=== PATIENT | male | born 1935 | race Caucasian/White ===

== ENCOUNTER 2018-06-08 13:02 | Inpatient (IN) ==
[2018-06-08 15:05] LABS: Basophils # 0.1 K/mm3 (0-0.2); Basophils % 0.6 % (0.1-2.0); Eosinophils # 0.3 K/mm3 (0.0-0.4); Eosinophils % 3.7 % (0.1-12.0); Hematocrit 46.3 % (42.0-52.0); Hemoglobin 14.8 g/dL (14.1-18.0); Lymphocytes # 2.4 K/mm3 (0.7-4.5); Lymphocytes % 26.8 K/mm3 (10-50); Mean Corpuscular Hemoglobin 29.5 pg (27.0-31.2); Mean Corpuscular Volume 92.1 fl (80-94); Mean Platelet Volume 8.3 fl (7.4-10.4); Monocytes # 0.8 K/mm3 (0.1-1.0); Monocytes % 8.5 % (1.7-9.3); Neutrophils # 5.5 K/mm3 (1.8-7.8); Neutrophils % 60.4 % (37.0-80.0); Platelet Count 179 K/mm3 (142-424); Red Blood Count 5.02 M/mm3 (4.60-6.20); Red Cell Distribution Width 12.8 % (11.5-17.5); White Blood Count 9.1 K/mm3 (4.8-10.8)
[2018-06-08 15:17] LABS: Albumin Level 3.8 gm/dL (3.4-5.0); Albumin/Globulin Ratio 1.1 (1.1-1.8); Anion Gap 10.3 mEq/L (5-15); Bilirubin,Total 0.8 mg/dL (0.2-1.0); Calcium 9.3 mg/dL (8.5-10.1); Globulin 3.5 gm/dl (1.3-3.2); Potassium 4.3 mmoL/L (3.5-5.1); Total Protein,Serum 7.3 gm/dL (6.4-8.2)
[2018-06-08 15:24] LABS: Creatine Kinase 150 U/L (39-308)
--- NOTE | 2018-06-08 15:29 | Pharmacy Consult Notes ---
[facility] VTE Monitoring - Patient Demographics Admission date: 06/08/18 Report Date: 06/08/18 Time: 15:29 Allergies/Adverse Reactions: Patient Allergies ciprofloxacin [From Cipro] Allergy (Verified 06/08/18 15:26) UNKNOWN Height: 1.83 m Weight: 102.058 kg - VTE Risk Labs: VTE Related Lab Results Hgb 14.8 g/dL (14.1-18.0) 06/08/18 14:00 Hct 46.3 % (42.0-52.0) 06/08/18 14:00 Plt Count 179 K/mm3 (142-424) 06/08/18 14:00 BUN 17 mg/dL (7-18) 06/08/18 14:00 Creatinine 0.90 mg/dL (0.70-1.30) 06/08/18 14:00 Estimated Creat Clear 81 mL/min (0-300) 06/08/18 14:00 Was VTE Risk Assessment Performed: Yes VTE Risk Level: Very Low Risk Clinical Trial Participant: No - Prophylaxis VTE Prophylaxis Ordered?: Yes Types of VTE Prophylaxis: TEDS Knee High
--- NOTE | 2018-06-08 15:45 | Consult Report ---
History of Present Illness Consult date: 06/08/18 Requesting physician: Shelby Roberts Chief complaint: Dizziness, palpitations Additional Medical History:: 1. Hypertension since the mid 1970s 2. Family history of coronary artery disease/myocardial infarction in his father who at age 44 3. "Borderline diabetic" but not on medication 4. Prostatic hypertrophy 5. History of palpitations with previous Holter monitor showing heart rates down into the 30's during sleep, PAC's and PVC's. 6. History of abnormal stress test 2004 with no ischemia and preserved ejection fraction History of present illness: 83-year-old white male with history of hypertension and previously documented PACs and PVCs presented to Dr. Roberts's office for 2 day history of palpitations and orthostatic dizziness. Patient denies any chest pain, pressure or tightness. He denies any nausea, vomiting, diaphoresis, shortness of breath, fever or chills. Denies any history of thyroid problems. Is a remote history of an abnormal stress test without need for further intervention or evaluation. He does see Dr. Tim Christianson on regular basis with last visit less than 1 month ago. Patient has been told he may need a pacemaker in future but did not meet criteria at that time. Patient states he has had intermittent episodes of palpitations over this over the last few years which he has treated at home by lying on a wedge for a couple of hours with resolution of symptoms thereafter. Patient was admitted to the hospital for evaluation. Cardiology consulted. Patient's telemetry shows bigeminy at this time with EKG showing sinus rhythm and occasional PVCs. [facility] History Medical History: Reports:: Congenital Heart Disease (heart problems), Hyperlipidemia, Hypertension Denies:: Cancer, Diabetes Mellitus Type 1, Diabetes Mellitus Type 2, MRSA Laterality Cases: Right: Other Other Surgeries: Yes: Colonoscopy Amputation: No Fractures: No - *Social History Educational Level: Completed College Smoking Status: Former smoker Tobacco Type: cigarettes Alcohol Intake: never Substance Use Type: denies use Occupational Status: retired Housing: house Household Members: spouse - Psychiatric History Expresses thoughts of harming self/others: None Suicide Plan Description: No Plan *Family Hx:: Cancer, Hyperlipidemia, Heart Attack, Hypertension, Stroke Meds Home Medications Medication Instructions Recorded Confirmed Type cholecalciferol (vitamin D3) 1,000 1,000 unit PO DAILY cap 02/24/18 History unit capsule cranberry extract 500 mg capsule 500 mg PO DAILY cap 02/24/18 History flaxseed oil 1,000 mg capsule 1,000 mg PO BID 02/24/18 History fluticasone 50 mcg/actuation nasal 1 spray INTRANASAL DAILY g 02/24/18 History spray,suspension omega-3 fatty acids 1,000 mg 1,000 mg PO DAILY cap 02/24/18 History capsule pravastatin 40 mg tablet 40 mg PO QHS 02/24/18 History Aspirin [Aspirin 81mg EC Tab] 81 mg PO DAILY 06/08/18 06/08/18 History Calcium Polycarbophil [Fiber-Caps] 625 mg PO BID 06/08/18 06/08/18 History Finasteride [Proscar 5mg Tablet] 5 mg PO DAILY 06/08/18 06/08/18 History Flaxseed/Omega3,6,9/Fatty Acid 1 each PO BID 06/08/18 06/08/18 History [Flax Seed Oil 1,300 mg Softgel] Glucosa Evangelista 2Kcl/Chondroitin Evangelista 1 each PO BID 06/08/18 06/08/18 History [Glucosamine & Chondroitin Cap] Telmisartan/Hydrochlorothiazid 1 tab PO DAILY 06/08/18 06/08/18 History [Telmisartan-Hctz 80-12.5 mg Tb] Terazosin HCl [Hytrin 1mg Capsule] 1 mg PO HS 06/08/18 06/08/18 History Vit C/E/Zn/Coppr/Lutein/Zeaxan 1 each PO BID 06/08/18 06/08/18 History [Preservision Areds 2 Softgel] Allergies Allergy/AdvReac Type Severity Reaction Status Date / Time ciprofloxacin [From Cipro] Allergy UNKNOWN Verified 06/08/18 15:26 Review of Systems - *Cardiovascular Reports irregular heart rhythm, Reports lightheadedness - *Respiratory Denies shortness of breath - *Gastrointestinal Denies abdominal pain - *Neurologic Reports dizziness Exam Vital signs and Labs for Last 24 Hours: Temp Pulse Resp BP Pulse Ox 97.7 F 68 18 142/63 96 06/08/18 13:52 06/08/18 15:15 06/08/18 13:52 06/08/18 15:16 06/08/18 13:52 Laboratory Results - last 24 hr 06/08/18 14:00: Total Creatine Kinase 150, CK-MB (CK-2) 2.5, CK-MB (CK-2) Rel Index 1.7, Troponin I < 0.02 06/08/18 14:00: WBC 9.1, RBC 5.02, Hgb 14.8, Hct 46.3, MCV 92.1, MCH 29.5, MCHC 32.0, RDW 12.8, Plt Count 179, MPV 8.3, Neut % (Auto) 60.4, Lymph % (Auto) 26.8 , [place] % (Auto) 8.5, Eos % (Auto) 3.7, Baso % (Auto) 0.6, Neut # (Auto) 5.5, Lymph # (Auto) 2.4, [place] # (Auto) 0.8, Eos # (Auto) 0.3, Baso # (Auto) 0.1 06/08/18 14:00: Sodium 141, Potassium 4.3, Chloride 105, Carbon Dioxide 30, Anion Gap 10.3, BUN 17, Creatinine 0.90, Estimated Creat Clear 81, Estimated GFR 81, Est GFR ( Amer) 98, Glucose 111 H, Calcium 9.3, Total Bilirubin 0.8, AST 30, ALT 48, Alkaline Phosphatase 70, Total Protein 7.3, Albumin 3.8, Globulin 3.5 H, Albumin/Globulin Ratio 1.1 I & O for Last 24 hours: Intake & Output 06/06/18 06/07/18 06/08/18 06/09/18 11:59 11:59 11:59 11:59 Weight 225 lb - *Routine Neck Exam Absent: JVD, carotid bruit - *Routine Respiratory Exam Present: CTA bilaterally - *Routine Cardiovascular Exam Present: RRR. Absent: murmur, gallop - *Routine Abdominal Exam Present: soft. Absent: tenderness - *Routine Extremities Exam Absent: edema - *Routine Neurological Exam Present: alert, oriented X3, moving all extremities Assessment and Plan (1) Ventricular bigeminy Current visit: Yes Status: Acute Category: Medical Code(s): I49.9 - Cardiac arrhythmia, unspecified (2) Palpitations Current visit: Yes Status: Acute Category: Medical Code(s): R00.2 - Palpitations (3) Orthostatic dizziness Current visit: Yes Status: Acute Category: Medical Code(s): R42 - Dizziness and giddiness (4) Hypertension Current visit: Yes Status: Acute Category: Medical Code(s): I10 - Essential (primary) hypertension - Assessment and plan all Dx Assessment and Plan for all problems:: 1. Obtain an echo to assess LVEF 2. Labs reviewed with initial troponin normal. Will check free T4 and TSH. 3. Continue to monitor patient overnight. 4. Further recommendations to follow.
[2018-06-08 16:32] LABS: T4 (Thyroxine) 5.6 ug/dl (4.7-13.3); Thyroid Stimulating Hormone 3.18 uIU/ml (0.358-3.740)
--- NOTE | 2018-06-08 18:23 | Progress Note ---
Internal Medicine - PN: Subj *Date: 06/08/18 *Time: 18:20 Interval history: See H&P from [facility]. The patient is admitted with cardiac dysrhythmia. Bigeminy was evident in the office. This was confirmed by EKG on admission. On telemetry he shows a lot of irregularity with significant pauses. This is no doubt the etiology of his unsteadiness. There may be necessity for a pacemaker. Exam Vital signs and Labs for Last 24 Hours: Temp Pulse Resp BP Pulse Ox 97.7 F 90 18 142/63 96 06/08/18 13:52 06/08/18 16:00 06/08/18 13:52 06/08/18 15:16 06/08/18 13:52 Laboratory Results - last 24 hr 06/08/18 14:00: Total Creatine Kinase 150, CK-MB (CK-2) 2.5, CK-MB (CK-2) Rel Index 1.7, Troponin I < 0.02 06/08/18 14:00: WBC 9.1, RBC 5.02, Hgb 14.8, Hct 46.3, MCV 92.1, MCH 29.5, MCHC 32.0, RDW 12.8, Plt Count 179, MPV 8.3, Neut % (Auto) 60.4, Lymph % (Auto) 26.8 , [place] % (Auto) 8.5, Eos % (Auto) 3.7, Baso % (Auto) 0.6, Neut # (Auto) 5.5, Lymph # (Auto) 2.4, [place] # (Auto) 0.8, Eos # (Auto) 0.3, Baso # (Auto) 0.1 06/08/18 14:00: Sodium 141, Potassium 4.3, Chloride 105, Carbon Dioxide 30, Anion Gap 10.3, BUN 17, Creatinine 0.90, Estimated Creat Clear 81, Estimated GFR 81, Est GFR ( Amer) 98, Glucose 111 H, Calcium 9.3, Total Bilirubin 0.8, AST 30, ALT 48, Alkaline Phosphatase 70, Total Protein 7.3, Albumin 3.8, Globulin 3.5 H, Albumin/Globulin Ratio 1.1 06/08/18 14:00: TSH 3.18, Free T4 Index 2.0 L, Thyroxine (T4) 5.6, T3 Uptake 35 I & O for Last 24 hours: Intake & Output 06/06/18 06/07/18 06/08/18 06/09/18 11:59 11:59 11:59 11:59 Intake Total 110 / 110 Balance 110 / 110 Weight 225 lb Assessment and Plan (1) Ventricular bigeminy Current visit: Yes Status: Acute Category: Medical Code(s): I49.9 - Cardiac arrhythmia, unspecified (2) Palpitations Current visit: Yes Status: Acute Category: Medical Code(s): R00.2 - Palpitations (3) Orthostatic dizziness Current visit: Yes Status: Acute Category: Medical Code(s): R42 - Dizziness and giddiness (4) Hypertension Current visit: Yes Status: Acute Category: Medical Code(s): I10 - Essential (primary) hypertension
--- NOTE | 2018-06-09 08:15 | Progress Note ---
Internal Medicine - PN: Subj *Date: 06/09/18 *Time: 08:38 Interval history: Patient did sleep some last night. He denies chest pain and shortness of breath. He has been up to the bathroom many times with out difficulty. Nursing states monitor has showed mostly ventricular bigeminy. Exam Vital signs and Labs for Last 24 Hours: Temp Pulse Resp BP Pulse Ox 99.5 F 80 18 131/55 94 L 06/09/18 08:00 06/09/18 08:00 06/09/18 08:00 06/09/18 08:00 06/09/18 08:00 Laboratory Results - last 24 hr 06/08/18 14:00: Total Creatine Kinase 150, CK-MB (CK-2) 2.5, CK-MB (CK-2) Rel Index 1.7, Troponin I < 0.02 06/08/18 14:00: WBC 9.1, RBC 5.02, Hgb 14.8, Hct 46.3, MCV 92.1, MCH 29.5, MCHC 32.0, RDW 12.8, Plt Count 179, MPV 8.3, Neut % (Auto) 60.4, Lymph % (Auto) 26.8 , [place] % (Auto) 8.5, Eos % (Auto) 3.7, Baso % (Auto) 0.6, Neut # (Auto) 5.5, Lymph # (Auto) 2.4, [place] # (Auto) 0.8, Eos # (Auto) 0.3, Baso # (Auto) 0.1 06/08/18 14:00: Sodium 141, Potassium 4.3, Chloride 105, Carbon Dioxide 30, Anion Gap 10.3, BUN 17, Creatinine 0.90, Estimated Creat Clear 81, Estimated GFR 81, Est GFR ( Amer) 98, Glucose 111 H, Calcium 9.3, Total Bilirubin 0.8, AST 30, ALT 48, Alkaline Phosphatase 70, Total Protein 7.3, Albumin 3.8, Globulin 3.5 H, Albumin/Globulin Ratio 1.1 06/08/18 14:00: TSH 3.18, Free T4 Index 2.0 L, Thyroxine (T4) 5.6, T3 Uptake 35 Laboratory Tests 06/08/18 14:00 Total Creatine Kinase 150 CK-MB (CK-2) 2.5 CK-MB (CK-2) Rel Index 1.7 Troponin I < 0.02 I & O for Last 24 hours: Intake & Output 06/06/18 06/07/18 06/08/18 06/09/18 11:59 11:59 11:59 11:59 Intake Total 470 / 470 Balance 470 / 470 Weight 225 lb 2.988 oz - Constitutional no acute distress Comments: Sitting up in the bed eating breakfast - *Routine Respiratory Exam Present: CTA bilaterally (Anteriorly and posteriorly) - *Routine Cardiovascular Exam Comments: Ventricular bigeminy noted on monitor - *Routine Abdominal Exam Present: soft, normoactive bowel sounds. Absent: tenderness, distended - *Routine Extremities Exam Present: full ROM. Absent: edema, calf tenderness - *Routine Neurological Exam Present: alert, oriented X3 Assessment and Plan (1) Ventricular bigeminy Current visit: Yes Status: Acute Category: Medical Code(s): I49.9 - Cardiac arrhythmia, unspecified (2) Palpitations Current visit: Yes Status: Acute Category: Medical Code(s): R00.2 - Palpitations (3) Orthostatic dizziness Current visit: Yes Status: Acute Category: Medical Code(s): R42 - Dizziness and giddiness (4) Hypertension Current visit: Yes Status: Acute Category: Medical Code(s): I10 - Essential (primary) hypertension - Assessment and plan all Dx Assessment and Plan for all problems:: Cardiology has seen patient and will follow their plan. Echo results are pending.
--- NOTE | 2018-06-09 11:14 | Progress Note ---
Subjective Date: 06/09/18 Time: 11:10 Principal diagnosis: Ventricular Bigeminy, Couplets and dizziness Interval history: 83 yo WM in bed in NAD. Still with brief dizziness when standing. Still with ventricular bigeminy and occasional couplets on telemetry. First degree AV block noted also. No syncope. Exam Vital signs and Labs for Last 24 Hours: Temp Pulse Resp BP Pulse Ox 99.5 F 80 18 131/55 94 L 06/09/18 08:00 06/09/18 08:00 06/09/18 08:00 06/09/18 08:00 06/09/18 08:00 Laboratory Results - last 24 hr 06/08/18 14:00: Total Creatine Kinase 150, CK-MB (CK-2) 2.5, CK-MB (CK-2) Rel Index 1.7, Troponin I < 0.02 06/08/18 14:00: WBC 9.1, RBC 5.02, Hgb 14.8, Hct 46.3, MCV 92.1, MCH 29.5, MCHC 32.0, RDW 12.8, Plt Count 179, MPV 8.3, Neut % (Auto) 60.4, Lymph % (Auto) 26.8 , [place] % (Auto) 8.5, Eos % (Auto) 3.7, Baso % (Auto) 0.6, Neut # (Auto) 5.5, Lymph # (Auto) 2.4, [place] # (Auto) 0.8, Eos # (Auto) 0.3, Baso # (Auto) 0.1 06/08/18 14:00: Sodium 141, Potassium 4.3, Chloride 105, Carbon Dioxide 30, Anion Gap 10.3, BUN 17, Creatinine 0.90, Estimated Creat Clear 81, Estimated GFR 81, Est GFR ( Amer) 98, Glucose 111 H, Calcium 9.3, Total Bilirubin 0.8, AST 30, ALT 48, Alkaline Phosphatase 70, Total Protein 7.3, Albumin 3.8, Globulin 3.5 H, Albumin/Globulin Ratio 1.1 06/08/18 14:00: TSH 3.18, Free T4 Index 2.0 L, Thyroxine (T4) 5.6, T3 Uptake 35 I & O for Last 24 hours: Intake & Output 06/06/18 06/07/18 06/08/1806/09/18 11:59 11:59 11:59 11:59 Intake Total 470 / 470 Balance 470 / 470 Weight 225 lb 2.988 oz - *Routine Respiratory Exam Present: CTA bilaterally - *Routine Cardiovascular Exam Present: RRR. Absent: murmur, gallop, rubs - *Routine Neurological Exam Present: alert, oriented X3, moving all extremities Progress Note: A&P (1) Ventricular bigeminy Status: Acute Current Visit: Yes (2) Palpitations Status: Acute Current Visit: Yes (3) Orthostatic dizziness Status: Acute Current Visit: Yes (4) Hypertension Status: Acute Current Visit: Yes Assessment and Plan for All Diagnoses:: Will give a trial of bisoprolol to reduce bigeminy/couplets and see if dizziness resolves. If patient improves but develops symptomatic bradycardia, then pacemaker indicated. Echo pending.
--- NOTE | 2018-06-09 18:38 | Cardiology Report ---
PROCEDURE: 2-D M-mode and color Doppler study INDICATIONS FOR THE TEST: Chest pain COPD Heart Murmur Tobacco Smoking Palpitations + Fatigue Syncope Edema Hypertension+Diabetes Mellitus Rheumatic Fever SOB HUGO Obesity Hyperlipidemia Family History HD Additional History VENTRICULAR BIGEMINY PATIENT INFORMATION HEIGHT: 72 WEIGHT:225 GENDER: Male B/P:142/63 2-D/M-MODE INTERPRETATION: 2-D MEASUREMENTS OBSERVED VALUES IN CMS Right Ventricular Dimension (RVDd) 2.6 Interventricular Septum (Thickness)(IVsd) 1.7 Left Ventricular Internal Dimensions(LVIDd) 4.5 Left Ventricular Posterior Wall (Thickness)(LVPWd) 1.0 Aortic Root 4.0 Aortic Cusp Separation 2.2 Left Atrial Dimensions (LAD) 3.7 2D 1. Left atrium is mildly enlarged, left ventricle is normal size, mild concentric left ventricular hypertrophy, visually estimated ejection fraction 55% with no obvious regional wall motion abnormality. 2. The right atrium and right ventricle are normal size and contractility. 3. The aortic valve is minimally thickened and fibrosed. 4. The mitral and tricuspid valve are structurally normal. 5. The pulmonic valve is poorly. 6. No significant pericardial effusion noted. DOPPLER INTERROGATION: Doppler interrogation of the aortic, mitral and tricuspid valvular presence of mild mitral and tricuspid regurgitation, tricuspid and jet velocity is insufficient for calculation of the right ventricular systolic pressure, grade 1 diastolic dysfunction seen with tissue Doppler evidence of raised left atrial pressure. CONCLUSION: 1. Mildly enlarged left atrium, normal left ventricular size, mild concentric left ventricular hypertrophy, visually estimated ejection fraction 55% with no obvious regional wall motion abnormality, grade 1 diastolic dysfunction seen with tissue Doppler evidence of raised left atrial pressure. 2. Trace aortic, mild mitral and tricuspid regurgitation 3. No significant pericardial effusion noted. Conclusion:
--- NOTE | 2018-06-10 08:16 | Progress Note ---
Internal Medicine - PN: Subj *Date: 06/10/18 *Time: 08:14 Interval history: Patient states he is feeling about the same today. He states his heart rate dropped into the 20s last night and is staying anywhere from 50-60 this morning. He has some medications he would like to discuss with cardiology about restarting. He denies any pain. He states he slept well and ate breakfast. Exam Vital signs and Labs for Last 24 Hours: Temp Pulse Resp BP Pulse Ox 97.8 F 61 18 130/94 95 06/10/18 08:00 06/10/18 08:00 06/10/18 08:00 06/10/18 08:00 06/10/18 08:00 I & O for Last 24 hours: Intake & Output 06/07/18 06/08/18 06/09/18 06/10/18 11:59 11:59 11:59 11:59 Intake Total 470 / 470 360 / 360 Balance 470 / 470 360 / 360 Weight 225 lb 2.988 oz - Constitutional no acute distress - *Routine Respiratory Exam Present: CTA bilaterally - *Routine Cardiovascular Exam Present: RRR - *Routine Abdominal Exam Present: soft, normoactive bowel sounds. Absent: tenderness - *Routine Extremities Exam Absent: edema Assessment and Plan (1) Ventricular bigeminy Current visit: Yes Status: Acute Category: Medical Code(s): I49.9 - Cardiac arrhythmia, unspecified (2) Palpitations Current visit: Yes Status: Acute Category: Medical Code(s): R00.2 - Palpitations (3) Orthostatic dizziness Current visit: Yes Status: Acute Category: Medical Code(s): R42 - Dizziness and giddiness (4) Hypertension Current visit: Yes Status: Acute Category: Medical Code(s): I10 - Essential (primary) hypertension - Assessment and plan all Dx Assessment and Plan for all problems:: Further care as per cardiology.
--- NOTE | 2018-06-10 09:22 | Progress Note ---
Subjective Date: 06/10/18 Time: 09:20 Principal diagnosis: Ventricular Bigeminy, Couplets and dizziness Interval history: 83 yo WM in bed in NAD. States the dizziness has improved with the addition of bisoprolol. Rate dropped to 29 bpm per patient while resting last night with quick jump back to 50-60's. Asymptomatic. Exam Vital signs and Labs for Last 24 Hours: Temp Pulse Resp BP Pulse Ox 97.8 F 58 L 18 130/94 95 06/10/18 08:00 06/10/18 08:00 06/10/18 08:00 06/10/18 08:00 06/10/18 08:00 I & O for Last 24 hours: Intake & Output 06/07/18 06/08/18 06/09/18 06/10/18 11:59 11:59 11:59 11:59 Intake Total 470 / 470 360 / 360 Balance 470 / 470 360 / 360 Weight 225 lb 2.988 oz - *Routine Respiratory Exam Present: CTA bilaterally - *Routine Cardiovascular Exam Present: RRR, irregular rhythm Progress Note: A&P (1) Ventricular bigeminy Status: Acute Current Visit: Yes (2) Palpitations Status: Acute Current Visit: Yes (3) Orthostatic dizziness Status: Acute Current Visit: Yes (4) Hypertension Status: Acute Current Visit: Yes Assessment and Plan for All Diagnoses:: Pt seen with Dr. Sargent Discussed use of bisoprolol to suppress symptomatic ectopic beats. Pt relates improvement in symptoms since admission. Discussed indications for pacemaker in future (return of symptoms despite beta rudy therapy or if he develops symptomatic bradycardia or syncope). OK for discharge home from Cardiology standpoint Follow up in 2-4 wks in our office.
[2018-06-10 13:39] VITALS: BP 117/40
--- NOTE | 2018-06-14 22:40 | Discharge Summary ---
General - General Admission date:: 06/08/18 Discharge date: 06/10/18 HPI HPI: 83-year-old white male with history of hypertension and previously documented PACs and PVCs presented to Dr. Roberts's office for 2 day history of palpitations and orthostatic dizziness. Patient denies any chest pain, pressure or tightness. He denies any nausea, vomiting, diaphoresis, shortness of breath, fever or chills. Denies any history of thyroid problems. Has a remote history of an abnormal stress test without need for further intervention or evaluation. He does see Dr. Tim Christianson on a regular basis with last visit less than 1 month ago. Patient has been told he may need a pacemaker in future but did not meet criteria at that time. Patient states he has had intermittent episodes of palpitations over this over the last few years which he has treated at home by lying on a wedge for a couple of hours with resolution of symptoms thereafter. Patient was admitted to the hospital for evaluation. Cardiology was consulted. Patient's telemetry shows bigeminy at this time with EKG showing sinus rhythm and occasional PVCs. Hospital Course Hospital Course: Cardiology saw the patient and ordered an echo. His troponin was normal. They also ordered thyroid studies and his free T4 was slightly low at 2. His echo showed an EF of 55%. They recommended a trial of bisoprolol to reduce bigeminy/ couplets and see if the dizziness would resolve. They felt if he improved but developed symptomatic bradycardia, then a pacemaker would be indicated. His dizziness did improve with the addition of bisoprolol. His rate dropped to 29 bpm while resting during the night with a quick jump back to 50-60's. Cardiology discussed indications for pacemaker in future (return of symptoms despite beta rudy therapy or if he develops symptomatic bradycardia or syncope). They felt he could be discharged home on bisoprolol and will need to f/u in the office with them in 2-4 wks. Objective Vital signs: Temp Pulse Resp BP Pulse Ox 97.8 F 48 L 17 117/40 94 L 06/10/18 12:00 06/10/18 12:00 06/10/18 12:00 06/10/18 12:00 06/10/18 12:00 Narrative: - Constitutional no acute distress Comments: Sitting up in the bed eating breakfast - *Routine Respiratory Exam Present: CTA bilaterally (Anteriorly and posteriorly) - *Routine Cardiovascular Exam Comments: Ventricular bigeminy noted on monitor - *Routine Abdominal Exam Present: soft, normoactive bowel sounds. Absent: tenderness, distended - *Routine Extremities Exam Present: full ROM. Absent: edema, calf tenderness - *Routine Neurological Exam Present: alert, oriented X3 DS: Diagnosis - Discharge Diagnosis (1) Ventricular bigeminy Status: Acute (2) Palpitations Status: Acute (3) Orthostatic dizziness Status: Acute (4) Hypertension Status: Acute Discharge Plan - Patient Discharge Instructions ACTIVITY: Continue current activity DIET: continue same diet Patient Instructions: DI for Arrhythmias - Follow up Plan Follow up with: Shelby Roberts MD [Primary Care Provider] - 1 week Disposition: Home, Self-[facility] Medications: Home Medications Medication Instructions Recorded Confirmed Type cholecalciferol (vitamin D3) 1,000 1,000 unit PO DAILY cap 02/24/18 06/08/18 History unit capsule cranberry extract 500 mg capsule 500 mg PO DAILY cap 02/24/18 06/08/18 History flaxseed oil 1,000 mg capsule 1,000 mg PO BID 02/24/18 06/08/18 History fluticasone 50 mcg/actuation nasal 1 spray INTRANASAL DAILY g 02/24/18 History spray,suspension omega-3 fatty acids 1,000 mg 1,000 mg PO BID cap 02/24/18 06/08/18 History capsule pravastatin 40 mg tablet 40 mg PO HS 02/24/18 06/09/18 History Aspirin [Aspirin 81mg EC Tab] 81 mg PO HS 06/08/18 06/09/18 History Calcium Polycarbophil [Fiber-Caps] 625 mg PO BID 06/08/18 06/08/18 History Finasteride [Proscar 5mg Tablet] 5 mg PO DAILY 06/08/18 06/08/18 History Flaxseed/Omega3,6,9/Fatty Acid 1 each PO BID 06/08/18 06/08/18 History [Flax Seed Oil 1,300 mg Softgel] Glucosa Evangelista 2Kcl/Chondroitin Evangelista 1 each PO BID 06/08/18 06/08/18 History [Glucosamine & Chondroitin Cap] Telmisartan/Hydrochlorothiazid 1 tab PO DAILY 06/08/18 06/08/18 History [Telmisartan-Hctz 80-12.5 mg Tb] Terazosin HCl [Hytrin 1mg Capsule] 1 mg PO HS 06/08/18 06/08/18 History Vit C/E/Zn/Coppr/Lutein/Zeaxan 1 each PO BID 06/08/18 06/08/18 History [Preservision Areds 2 Softgel] Prescriptions/Medication Reconciliation: New Bisoprolol Fumarate [Zebeta 5mg tablet] 5 mg PO BID #60 tab Continue omega-3 fatty acids 1,000 mg capsule 1,000 mg PO BID cap cranberry extract 500 mg capsule 500 mg PO DAILY cap flaxseed oil 1,000 mg capsule 1,000 mg PO BID pravastatin 40 mg tablet 40 mg PO HS cholecalciferol (vitamin D3) 1,000 unit capsule 1,000 unit PO DAILY cap fluticasone 50 mcg/actuation nasal spray,suspension 1 spray INTRANASAL DAILY g Flaxseed/Omega3,6,9/Fatty Acid [Flax Seed Oil 1,300 mg Softgel] 1 each PO BID Glucosa Evangelista 2Kcl/Chondroitin Evangelista [Glucosamine & Chondroitin Cap] 1 each PO BID Telmisartan/Hydrochlorothiazid [Telmisartan-Hctz 80-12.5 mg Tb] 1 tab PO DAILY Finasteride [Proscar 5mg Tablet] 5 mg PO DAILY Aspirin [Aspirin 81mg EC Tab] 81 mg PO HS Calcium Polycarbophil [Fiber-Caps] 625 mg PO BID Vit C/E/Zn/Coppr/Lutein/Zeaxan [Preservision Areds 2 Softgel] 1 each PO BID Terazosin HCl [Hytrin 1mg Capsule] 1 mg PO HS
== END 2018-06-10 14:00 | disposition home or self-care (01) ==
LOC: 2ND → OBSVTOIN 13:20
PROVIDERS: ADMIT Family Medicine; ATTEND Family Medicine

== ENCOUNTER → 2019-10-26 11:24 | Outpatient (CLI) | payer MEDICARE, OTHER, SELFPAY ==
--- NOTE | 2019-10-26 11:36 | ECG_ITS ---
APPROVED REPORT Exam: Resting ECG HR:55 bpm ECG Measurements Heart Rate 55 AXES WY 216 P 45 QRSd 110 QRS -48 QT 430 T -26 QTc 411 <Conclusion> Sinus bradycardia with 1st degree AV block with occasional premature ventricular complexes Incomplete right bundle branch block Left anterior fascicular block Moderate voltage criteria for LVH, may be normal variant Abnormal ECG Electronically signed by : Humberto Lara, 10/27/2019 07:18:21
== END ==
PROVIDERS: PCP Family Medicine; Visit Provider Family Medicine
DX: Z01.818 Encounter for other preprocedural examination (principal)
CPT/HCPCS: 93005

== ENCOUNTER → 2020-11-08 14:14 | Outpatient (CLI) | payer MEDICARE, OTHER, SELFPAY ==
--- NOTE | 2020-11-08 14:22 | XR_ITS ---
PROCEDURE: XR LUMBAR SPINE MIN 4V CLINICAL INDICATION: ACUTE LT SIDED LOWER BACK PAIN W/ LT SIDED SCIATICA COMPARISON: CR [id number] LUMBAR SPINE 5 VIEWS from 04/18/2014 FINDINGS: Mild thoracolumbar curvature convex left. There is degenerative disc disease from T11-S1 most severe at L1-L2 and L2-L3. There are anterior osteophytes at L1-L2 and L2-L3 with mild kyphosis. There is 5 mm retrolisthesis of L1 on L2 and 3 mm retrolisthesis of L2 on L3. Facet arthritic changes are present at L3-L4 and L5.. IMPRESSION: Lumbar spondylosis which has progressed compared to the previous exam. Please see above for details Dictated by: Noam Ordonez MD 11/08/2020 14:58 Noam Ordonez MD in [place] 11/08/2020 14:58
== END ==
PROVIDERS: PCP Family Medicine; Visit Provider Physician Assistant
DX: M54.42 Lumbago with sciatica, left side (principal)
CPT/HCPCS: 72110

== ENCOUNTER 2021-09-06 14:43 | Emergency (ER) | payer MEDICARE, OTHER, SELFPAY ==
[2021-09-06 14:44] VITALS: BP 142/78; PULSE 78; RESP 16; TEMP 36.9; O2SAT 98; BMI 32.5
--- NOTE | 2021-09-06 14:53 | XR_ITS ---
PROCEDURE: XR HAND LT MIN 3V CLINICAL INDICATION: lac, eval for foreign body COMPARISON: No exams were available for comparison FINDINGS: No fracture or dislocation. No lytic or blastic change. There is normal mineralization. There is sclerosis and narrowing and spurring of the 1st carpometacarpal joint with mild deformity of the trapezium. The remaining carpal bones appear normal. There is joint space narrowing of the IP joint of the thumb and IP joints of the fingers. Changes are most prominent the DIP joints of the index and middle finger. There is no significant soft tissue injury identified and no foreign bodies. 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 Harish Navarro MD 09/06/2021 15:32 Dr. Harish Navarro MD in [place] 09/06/2021 15:32
--- NOTE | 2021-09-06 14:55 | [facility].EDGENADL ---
ED Disposition Clinical Impression: Laceration Disposition: Home, Self-Care Condition on Discharge: Good Instructions: DI for Laceration Repair Referrals: Shelby Roberts MD [Primary Care Provider] - - Critical Care Critical Care Time: No Attestation: On 09/06/21, the high probability of a clinically significant, sudden or life threatening deterioration of the following system(s) required my full and direct attention, intervention and personal management. The time I documented below is in addition to time spent performing reported procedures but includes the following listed in this critical care notation. Medical Decision Making - Medical Records Medical records reviewed: Yes: I reviewed the patient's medical records. - Michael Inquiry Pt receiving controlled substance: No Vital Signs: 09/06/21 14:44 Temperature 98.4 F Temperature Source Oral Pulse Rate [Radial] 78 Respiratory Rate 16 Blood Pressure [Right Arm] 142/78 H Blood Pressure Mean [Right Arm] 99 Blood Pressure Position [Right Arm] Sitting 02 Sat by Pulse Oximetry 98 Oxygen Delivery Method Room Air Orders (Tests/Meds): ORDERS Category Date Time Status XR hand LT 2V Stat Exams 09/06/21 14:53 Ordered Medical Decision Narrative: Patient is an 86-year-old male presents to the ED today with a laceration to the left thumb. Patient is well-appearing on initial evaluation, was seen immediately upon arrival, appears to have blood a decent amount but is now hemostatic. Will perform x-ray 3 view of the left hand, to ensure no foreign body or fracture underneath, and patient will laceration repair afterwards. Laceration has been repaired patient's tetanus is up-to-date per card in his wallet, given return precautions return to ED with any new or worsening symptom specifically we discussed signs of infection, patient does not require prophylactic antibiotics at this time as wound does not significantly contaminated, and there is no underlying fracture on independent interpretation of patient's left hand x-rays, patient will follow up outpatient, absorbable stitches placed. General Adult HPI - General Chief complaint: Wound/Laceration Stated complaint: laceration Time Seen by Provider: 09/06/21 14:56 Mode of Arrival: Ambulatory Limitations: No Limitations Description of Symptoms (Recalled from ER Triage Doc. by RN): to ed per pvt car with c/o laceration to lt hand - History of Present Illness HPI narrative: Patient is a 86-year-old male presenting to the ED today after hitting his left hand with a hatchet. Patient states that he sustained a laceration over the left thumb, states that it was bleeding initially he toilet paper over the laceration and came to the emergency department for further evaluation of this. Patient states he does not take blood thinners but does take a baby aspirin daily. Patient that he is otherwise well, states he does not have any numbness or tingling over the finger, and states he is able to move it normally. - Related Data Home Medications Medication Instructions Recorded Confirmed cholecalciferol (vitamin D3) 25 1,000 unit PO DAILY cap 02/24/18 02/23/19 mcg (1,000 unit) capsule cranberry extract 500 mg capsule 500 mg PO DAILY cap 02/24/18 02/23/19 flaxseed oil 1,000 mg capsule 1,000 mg PO BID 02/24/18 02/23/19 fluticasone propionate 50 1 spray INTRANASAL DAILY g 02/24/18 02/23/19 mcg/actuation nasal spray,suspension omega-3 fatty acids 1,000 mg 1,000 mg PO BID cap 02/24/18 02/23/19 capsule pravastatin 40 mg tablet 40 mg PO HS 02/24/18 02/23/19 Aspirin [Aspirin 81mg EC Tab] 81 mg PO HS 06/08/18 02/23/19 Calcium Polycarbophil [Fiber-Caps] 625 mg PO BID 06/08/18 02/23/19 Finasteride [Proscar 5mg Tablet] 5 mg PO DAILY 06/08/18 02/23/19 Flaxseed/Omega3,6,9/Fatty Acid 1 each PO BID 06/08/18 02/23/19 [Flax Seed Oil 1,300 mg Softgel] Glucosa Evangelista 2Kcl/Chondroitin Evangelista 1 each PO BID 06/08/18
[2021-09-06 16:14] VITALS: BP 122/86; PULSE 72; RESP 16; TEMP 36.8; O2SAT 98
== END 2021-09-06 16:15 | disposition home or self-care (01) ==
PROVIDERS: Emergency Provider Student in an Organized Health Care Education/Training Program; PCP Family Medicine
DX: S61.012A Laceration without foreign body of left thumb without damage to nail, initial encounter (principal); I10 Essential (primary) hypertension; Z79.899 Other long term (current) drug therapy; W27.0XXA Contact with workbench tool, initial encounter
CPT/HCPCS: 12001; 73130; 99282